=== PATIENT | female | born 1940 | race American Indian/Alaskan Native ===

== ENCOUNTER 2019-02-17 09:14 | Outpatient (CLI) | payer MEDICARE, OTHER ==
--- NOTE | 2019-02-17 13:28 | Ultrasound Report ---
RENAL ULTRASOUND HISTORY: R35.0) FREQUENCY OF MICTURITION COMPARISON: 10/24/2014 TECHNIQUE: Multiple real-time ultrasonographic grayscale images were obtained of the kidneys and urin horace bladder. FINDINGS: Right kidney: A medial upper pole cyst measures 2.7 x 3.1 x 2.4 cm and a more lateral upper pole cyst measures 1.2 x 0.9 x 0.7 cm. Renal margins are indistinct and there is increased echogenicity of the kidney with cortical thinning. Kidney measures 10 cm. Transverse diameters were not obtained. No hy dronephrosis. Left kidney: Increased echogenicity of the kidney and irregular cortex. A solid central mass versus b enign renal column measures 1.8 x 1.4 cm. Kidney measures 10.2 cm.Transverse diameters were not obtai thuan. No hydronephrosis. Urinary bladder: No significant abnormality. IMPRESSION: 1. Bilateral medical renal disease with no hydronephrosis. 2. A possible 1.87 m solid mass in the midportion of the left kidney. Recommend noncontrast CT or MRI without and with contrast for further evaluation. 3. Benign right renal cysts. Signer Name: Charli Knox MD Signed: 02/17/2019 1:24 PM Workstation Name: [id number]
--- NOTE | 2019-02-17 13:32 | Ultrasound Report ---
ULTRASOUND BLADDER INDICATION / CLINICAL INFORMATION: R35.0) Frequency of micturition. COMPARISON: None available. FINDINGS: URINARY BLADDER: No significant abnormality. PRE-VOID VOLUME: 189.1 ml. POST-VOID VOLUME: 121.3 ml. ADDITIONAL FINDINGS: No bladder calculus or mass. IMPRESSION: Elevated post void residual urine volume. POST-VOID RESIDUAL (PVR) GUIDELINES < 50 ml = Normal PVR < 100 ml = Normal PVR in patients > 65 > 100 ml = Consider elevated PVR > 200-300 ml = Large PVR Signer Name: Charli Knox MD Signed: 02/17/2019 1:28 PM Workstation Name: [id number]
== END 2019-02-17 09:15 | disposition home or self-care (01) ==
LOC: US 09:14
PROVIDERS: ATTEND Internal Medicine Nephrology
DX: N28.1 Cyst of kidney, acquired (principal); N28.9 Disorder of kidney and ureter, unspecified
CPT/HCPCS: 76770; 76857

== ENCOUNTER 2021-01-28 15:04 | Emergency (ER) | payer MEDICARE, OTHER ==
[2021-01-28 17:36] VITALS: BP 183/76
--- NOTE | 2021-01-28 18:07 | Emergency Department Report ---
- General Chief complaint: Skin Rash Stated complaint: RASH ON BUTT/VAGINA Time Seen by Provider: 01/28/21 17:50 Source: patient Mode of arrival: Ambulatory Limitations: No Limitations - History of Present Illness Initial comments: Patient is a 80-year-old female brought in by her daughter with complaints of a rash to the buttocks that began a week ago. Patient states that she use hydrocortisone ointment [id number] and it made the symptoms worse. Patient has a history of diabetes. She states that it has been itching and burning. Patient and patient's daughter denies any fever, nausea, vomiting, diarrhea, chills. No allergies to medications. - Related Data Home Medications Medication Instructions Recorded Confirmed Last Taken Aspirin [Aspirin BABY CHEW TAB] 81 mg PO QDAY 10/21/14 10/21/14 Unknown Clopidogrel Bisulfate [Plavix] 75 mg PO DAILY 10/21/14 10/21/14 Unknown Metformin HCl [metFORMIN ER] 500 mg PO BID 10/21/14 10/21/14 Unknown Pravastatin Sodium [Pravastatin] 10 mg PO DAILY 10/21/14 10/21/14 Unknown hydroCHLOROthiazide 25 mg PO DAILY 10/21/14 10/21/14 Unknown [Hydrochlorothiazide] Previous Rx's Medication Instructions Recorded Last Taken Type Fluconazole [Diflucan TAB] 150 mg PO ONCE 1 Days #3 tablet 01/28/21 Unknown Rx Ketoconazole 2% [Nizoral] 1 applicatio TP QDAY #2 tube 01/28/21 Unknown Rx Allergies Allergy/AdvReac Type Severity Reaction Status Date / Time No Known Allergies Allergy Verified 10/21/14 23:57 Abscess Boil HPI - HPI Chief Complaint: Skin Rash Stated Complaint: RASH ON BUTT/VAGINA Time Seen by Provider: 01/28/21 17:50 Home Medications: Home Medications Medication Instructions Recorded Confirmed Last Taken Aspirin [Aspirin BABY CHEW TAB] 81 mg PO QDAY 10/21/14 10/21/14 Unknown Clopidogrel Bisulfate [Plavix] 75 mg PO DAILY 10/21/14 10/21/14 Unknown Metformin HCl [metFORMIN ER] 500 mg PO BID 10/21/14 10/21/14 Unknown Pravastatin Sodium [Pravastatin] 10 mg PO DAILY 10/21/14 10/21/14 Unknown hydroCHLOROthiazide 25 mg PO DAILY 10/21/14 10/21/14 Unknown [Hydrochlorothiazide] Previous Rx's Medication Instructions Recorded Last Taken Type Fluconazole [Diflucan TAB] 150 mg PO ONCE 1 Days #3 tablet 01/28/21 Unknown Rx Ketoconazole 2% [Nizoral] 1 applicatio TP QDAY #2 tube 01/28/21 Unknown Rx Allergies/Adverse Reactions: Allergies Allergy/AdvReac Type Severity Reaction Status Date / Time No Known Allergies Allergy Verified 10/21/14 23:57 ED Review of Systems ROS: Stated complaint: RASH ON BUTT/VAGINA Other details as noted in HPI Comment: All other systems reviewed and negative ED Past Medical Hx - Past Medical History Previous Medical History?: Yes Hx Hypertension: Yes Hx CVA: Yes (2004) Hx Diabetes: Yes Additional medical history: kidney function issues - Surgical History Past Surgical History?: Yes Additional Surgical History: - Social History Smoking Status: Never Smoker - Medications Home Medications: Home Medications Medication Instructions Recorded Confirmed Last Taken Type Aspirin [Aspirin BABY CHEW TAB] 81 mg PO QDAY 10/21/14 10/21/14 Unknown History Clopidogrel Bisulfate [Plavix] 75 mg PO DAILY 10/21/14 10/21/14 Unknown History Metformin HCl [metFORMIN ER] 500 mg PO BID 10/21/14 10/21/14 Unknown History Pravastatin Sodium [Pravastatin] 10 mg PO DAILY 10/21/14 10/21/14 Unknown History hydroCHLOROthiazide 25 mg PO DAILY 10/21/14 10/21/14 Unknown History [Hydrochlorothiazide] Fluconazole [Diflucan TAB] 150 mg PO ONCE 1 Days #3 tablet 01/28/21 Unknown Rx Ketoconazole 2% [Nizoral] 1 applicatio TP QDAY #2 tube 01/28/21 Unknown Rx ED Physical Exam - General Limitations: No Limitations General appearance: alert, in no apparent distress - Head Head exam: Present: atraumatic, normocephalic - Eye Eye exam: Present: normal appearance - ENT ENT exam: Present: mucous membranes moist - Respiratory Respiratory exam: Absent: respiratory distress, accessory muscle use - Neurological Exam Neurological exam: Present: alert, oriented X3 - Psychiatric Psychiatric exam: Present: normal affect, normal mood - Skin Skin exam: Present: warm, dry, other (skin is thickened, scaling, and erythematous present to the inner buttocks bilaterally, no obvious perineum invovlement, no ulceration at this time, no obvious edema, induration or fluctuance, paste up artist: YOVANI correa) ED Course Vital Signs 01/28/21 17:34 Temperature 98.1 F Pulse Rate 76 Respiratory 16 Rate Blood Pressure 183/76 [Right] O2 Sat by Pulse 97 Oximetry ED Medical Decision Making - Medical Decision Making Patient is a 80-year-old female brought in by her daughter with complaints of a rash to the buttocks that began a week ago. Patient states that she use hydrocortisone ointment [id number] and it made the symptoms worse. Patient has a history of diabetes. She states that it has been itching and burning. Patient and patient's daughter denies any fever, nausea, vomiting, diarrhea, chills. No allergies to medications. Vitals are stable, daughter states that patient's blood pressure has been elevated over the last couple weeks and her primary care doctor is working on lowering her blood pressure. On exam:skin is thickened, scaling, and erythematous present to the inner buttocks bilaterally, no obvious perineum invovlement, no ulceration at this time, no obvious edema, induration or fluctuance, paste up artist: YOVANI correa. Examination appears most consistent with skin yeast infection. No signs of cellulitis or abscess at this time. No signs of ulceration. given prescription for medication. Advised patient and patient's daughter Please use medication as prescribed. Please follow-up with your primary care doctor in the next 2 to 3 days to have area reexamined. Return to emergency room immediately for any new or worsening symptoms including but not limited to if you begin to see breakdown of the skin such as an ulcer or she began to seeing signs of infection such as significant swelling, redness, drainage, foul odor, fever, chills, vomiting, etc. Critical care attestation.: If time is entered above; I have spent that time in minutes in the direct care of this critically ill patient, excluding procedure time. ED Disposition Clinical Impression: Fungal skin infection Disposition: DC-01 TO HOME OR SELFCARE Is pt being admited?: No Does the pt Need Aspirin: No Condition: Stable Instructions: Skin Yeast Infection Additional Instructions: Please use medication as prescribed. Please follow-up with your primary care doctor in the next 2 to 3 days to have area reexamined. Return to emergency room immediately for any new or worsening symptoms including but not limited to if you begin to see breakdown of the skin such as an ulcer or she began to seeing signs of infection such as significant swelling, redness, drainage, foul odor, fever, chills, vomiting, etc. Prescriptions: Fluconazole [Diflucan TAB] 150 mg PO ONCE 1 Days #3 tablet Ketoconazole 2% [Nizoral] 1 applicatio TP QDAY #2 tube Referrals: PRIMARY CARE, [Primary Care Provider] - 2-3 Days Time of Disposition: 18:07 Print Language: [place]
== END 2021-01-28 18:10 | disposition home or self-care (01) ==
LOC: ED 15:04
DX: B36.9 Superficial mycosis, unspecified (principal); E11.8 Type 2 diabetes mellitus with unspecified complications; Z86.73 Personal history of transient ischemic attack (TIA), and cerebral infarction without residual deficits; I10 Essential (primary) hypertension
CPT/HCPCS: 99281

== ENCOUNTER 2021-07-04 14:28 | Inpatient (IN) | payer MEDICARE, OTHER ==
--- NOTE | 2021-07-04 15:49 | XRay Report ---
CHEST 2 VIEWS INDICATION: chest pain. COMPARISON: none FINDINGS: Support devices: None. Heart: Within normal limits. Lungs/pleura: No acute air space or interstitial disease. No pneumothorax. Additional findings: None. IMPRESSION: No acute findings. Signer Name: Gildardo Lopez Jr, MD Signed: 07/04/2021 3:45 PM Workstation Name: [id number]
[2021-07-04 16:38] LABS: Basophils % (Auto) 0.3 % (0.0-1.8); Eosinophils # (Auto) 0.3 K/mm3 (0.0-0.4); Eosinophils % (Auto) 3.4 % (0.0-4.3); Hematocrit 37.6 % (30.3-42.9); Hemoglobin 12.2 gm/dl (10.1-14.3); Lymphocytes # (Auto) 3.1 K/mm3 (1.2-5.4); Lymphocytes % (Auto) 39.7 % (13.4-35.0); Mean Corpuscular HGB Conc 33 % (30-34); Mean Corpuscular Volume 105 fl (79-97); Monocytes # (Auto) 0.7 K/mm3 (0.0-0.8); Monocytes % (Auto) 8.8 % (0.0-7.3); Platelet Count 239 K/mm3 (140-440); Red Blood Count 3.58 M/mm3 (3.65-5.03); Red Cell Distribution Width 13.3 % (13.2-15.2)
[2021-07-04] MEDS ORDERED: ASPIRIN 325 MG TAB PO ONE (17:02)
[2021-07-04] MEDS ORDERED: NITROGLYCERIN 2% OINT 1 GM TP ONE (17:02)
[2021-07-04] MEDS ORDERED: MORPHINE 4 MG/1 ML INJ IV ONE (17:02)
[2021-07-04] MEDS ORDERED: ONDANSETRON 4 MG/2 ML INJ IV ONE (17:02)
[2021-07-04 17:04] LABS: Alanine Aminotransferase 12 units/L (7-56); BUN/Creatinine Ratio 19; Blood Urea Nitrogen 23 mg/dL (7-17); Calcium 9.2 mg/dL (8.4-10.2); Creatine Kinase MB 1.9 ng/mL (0.0-4.0); Hemolysis Index 12
--- NOTE | 2021-07-04 17:20 | Emergency Department Report ---
HPI - General Chief Complaint: Chest Pain Time Seen by Provider: 07/04/21 15:35 - HPI HPI: MSE 6 Patient is a 80-year-old female present with a chief complaint of chest pain. The patient states earlier today she developed substernal left-sided chest pain feeling as though something was laying on her chest. Patient states the chest pain suddenly worsened feeling as though Swarner dropped a weight on her chest. Patient denies shortness of breath, nausea/vomiting with the pain but admits to diaphoresis. Patient currently gives her chest heaviness a score of 5/10. Patient states the pain has been intermittent. Patient states she had a normal stress test last year but has never had a cardiac catheterization. ED Past Medical Hx - Past Medical History Hx Hypertension: Yes Hx CVA: Yes (2004) Hx Diabetes: Yes Additional medical history: kidney function issues - Surgical History Additional Surgical History: - Family History Family history: no significant - Social History Smoking Status: Former Smoker (None x40 years) Substance Use Type: None - Medications Home Medications: Home Medications Medication Instructions Recorded Confirmed Last Taken Type Aspirin [Aspirin BABY CHEW TAB] 81 mg PO QDAY 10/21/14 10/21/14 Unknown History Clopidogrel Bisulfate [Plavix] 75 mg PO DAILY 10/21/14 10/21/14 Unknown History Metformin HCl [metFORMIN ER] 500 mg PO BID 10/21/14 10/21/14 Unknown History Pravastatin Sodium [Pravastatin] 10 mg PO DAILY 10/21/14 10/21/14 Unknown History hydroCHLOROthiazide 25 mg PO DAILY 10/21/14 10/21/14 Unknown History [Hydrochlorothiazide] Fluconazole [Diflucan TAB] 150 mg PO ONCE 1 Days #3 tablet 01/28/21 Unknown Rx Ketoconazole 2% [Nizoral] 1 applicatio TP QDAY #2 tube 01/28/21 Unknown Rx ED Review of Systems ROS: Stated complaint: CHEST PAIN Other details as noted in HPI Constitutional: diaphoresis Eyes: denies: eye pain ENT: denies: throat pain Respiratory: denies: shortness of breath Cardiovascular: chest pain Endocrine: no symptoms reported Gastrointestinal: denies: nausea, vomiting Genitourinary: denies: dysuria Musculoskeletal: denies: back pain Neurological: denies: headache Physical Exam - Physical Exam Vital Signs: Vital Signs 07/04/21 15:11 Temperature 97.7 F Pulse Rate 58 L Respiratory 16 Rate Blood Pressure 160/80 [Right] O2 Sat by Pulse 99 Oximetry Physical Exam: GENERAL: The patient is well-developed well-nourished female sitting in chair not appearing to be in acute. [] HEENT: Normocephalic. Atraumatic. Extraocular motions are intact. Patient has moist mucous membranes. NECK: Supple. Trachea midline CHEST/LUNGS: Clear to auscultation. There is no respiratory distress noted. HEART/CARDIOVASCULAR: Regular. There is no tachycardia. There is no gallop rub or murmur. ABDOMEN: Abdomen is soft, nontender. Patient has normal bowel sounds. There is no abdominal distention. SKIN: There is no rash. There is no edema. There is no diaphoresis. NEURO: The patient is awake, alert, and oriented. The patient is cooperative. The patient has no focal neurologic deficits. The patient has normal speech. GCS 15 MUSCULOSKELETAL: There is no evidence of acute injury. ED Course Vital Signs 07/04/21 15:11 Temperature 97.7 F Pulse Rate 58 L Respiratory 16 Rate Blood Pressure 160/80 [Right] O2 Sat by Pulse 99 Oximetry ED Medical Decision Making - Lab Data Result diagrams: 07/04/21 16:07 07/04/21 16:07 Laboratory Tests 07/04/21 07/04/21 07/04/21 16:07 16:07 16:07 WBC 7.9 RBC 3.58 L Hgb 12.2 Hct 37.6 MCV 105 H MCH 34 H MCHC 33 RDW 13.3 Plt Count 239 Lymph % (Auto) 39.7 H [place] % (Auto) 8.8 H Eos % (Auto) 3.4 Baso % (Auto) 0.3 Lymph # (Auto) 3.1 [place] # (Auto) 0.7 Eos # (Auto) 0.3 Baso # (Auto) 0.0 Seg Neutrophils % 47.8 Seg Neutrophils # 3.8 Sodium 141 Potassium 4.6 Chloride 105.3 Carbon Dioxide 20 L Anion Gap 20 BUN 23 H Creatinine 1.2 Estimated GFR 52 BUN/Creatinine Ratio 19 Glucose 90 Calcium 9.2 Total Bilirubin 0.20 AST 18 ALT 12 Alkaline Phosphatase 99 Total Creatine Kinase 73 CK-MB (CK-2) 1.9 CK-MB (CK-2) Rel Index 2.6 Troponin T < 0.010 Total Protein 8.3 H Albumin 4.0 Albumin/Globulin Ratio 0.9 - EKG Data -: EKG Interpreted by Me EKG shows normal: sinus rhythm Rate: normal - EKG Data When compared to previous EKG there are: changes noted Interpretation: nonspecific ST-T wave abdelrahman (New T wave inversions in leads V2, V3 when compared to previous EKG dated 10/22/2014) - Radiology Data Radiology results: report reviewed (Chest x-ray), image reviewed (Chest x-ray) interpreted by me: Chest x-ray-no definite focal infiltrates, no pneumothorax [facility] [address] [place] [address] XRay Report Signed Patient: DORETHA HUDSON MR#: [id number] : 1940 Acct:[id number] Age/Sex: 80 / F ADM Date: 07/04/21 Loc: ED Attending Dr: Ordering Physician: KELLEN VIRK Date of Service: 07/04/21 Procedure(s): XR chest routine 2V Accession Number(s): [id number] cc: KELLEN VIRK Fluoro Time In Minutes: CHEST 2 VIEWS INDICATION: chest pain. COMPARISON: none FINDINGS: Support devices: None. Heart: Within normal limits. Lungs/pleura: No acute air space or interstitial disease. No pneumothorax. Additional findings: None. IMPRESSION: No acute findings. Signer Name: Gildardo Lopez Jr, MD Signed: 07/04/2021 3:45 PM Workstation Name: [id number] Transcribed By: TTR Dictated By: GILDARDO LOPEZ JR, MD Electronically Authenticated By: GILDARDO LOPEZ JR, MD Signed Date/Time: 07/04/211544 DD/ 44 TD/TT: Print Cancel - Differential Diagnosis ACS, pericarditis, GERD Critical care attestation.: If time is entered above; I have spent that time in minutes in the direct care of this critically ill patient, excluding procedure time. ED Disposition Clinical Impression: Chest pain Disposition: ADMITTED INPATIENT Is pt being admited?: Yes Does the pt Need Aspirin: Yes Condition: Fair Instructions: Nonspecific Chest Pain, Adult Referrals: MEENA MATHIS MD [Primary Care Provider] - 3-5 Days Time of Disposition: 17:23 (Hospitalist called (Dr. Valentino)) Heart Score - HEART Score History: Moderately suspicious EKG: Non-specific Age: > 65 Risk factors: 1-2 risk factors Troponin: < normal limit HEART Score: 5 - EKG Read Time Time EKG Completed: 15:02 EKG Read Time: 15:06
--- NOTE | 2021-07-04 21:10 | Event Note ---
Date: 07/04/21
[2021-07-04] MEDS ORDERED: METOCLOPRAMIDE 10 MG/2 ML INJ IV PRN (21:25)
[2021-07-04] MEDS ORDERED: ACETAMINOPHEN 325 MG TAB PO PRN (21:25)
[2021-07-04] MEDS ORDERED: ONDANSETRON 4 MG/2 ML INJ IV PRN (21:25)
[2021-07-04] MEDS ORDERED: oxyCODONE /ACETAMINOPHEN 5-325MG TAB PO PRN (21:25)
[2021-07-04] MEDS ORDERED: SODIUM CHLORIDE 0.9% 1000 ML 1,000 ML IV SCH (21:30)
--- NOTE | 2021-07-04 23:16 | History and Physical Report ---
History of Present Illness Date of examination: 07/04/21 Date of admission: 07/04/21 17:26 Chief complaint: Chest pain since a.m. History of present illness: 80-year-old female with history of type 2 diabetes, hyperlipidemia, hypertension and coronary artery disease comes in for chest pain since a.m. Chest pain is substernal. Feels as if something heavy on her. Chest pain is intermittent. No shortness of breath. Chest pain is about 5 on a scale of 1-10. No nausea or vomiting. No shortness of breath. Patient had a stress test in 2014 at this facility which was reviewed and normal. No fever or cough. No exposure to COVID. Vaccination status was not asked during history taking - Past Medical History --Hypertension: Yes --CVA: Yes (2004) --Diabetes: Yes --kidney function issues - Surgical History --Additional Surgical History: - Family History --Family history: no significant - Social History --Smoking Status: Former Smoker (None x40 years) --Substance Use Type: None - Medications Home Medications: Home Medications Medication Instructions Recorded Confirmed Last Taken Type Aspirin [Aspirin BABY CHEW TAB] 81 mg PO QDAY 10/21/14 10/21/14 Unknown History Clopidogrel Bisulfate [Plavix] 75 mg PO DAILY 10/21/14 10/21/14 Unknown History Metformin HCl [metFORMIN ER] 500 mg PO BID 10/21/14 10/21/14 Unknown History Pravastatin Sodium [Pravastatin] 10 mg PO DAILY 10/21/14 10/21/14 Unknown History hydroCHLOROthiazide 25 mg PO DAILY 10/21/14 10/21/14 Unknown History [Hydrochlorothiazide] Fluconazole [Diflucan TAB] 150 mg PO ONCE 1 Days #3 tablet 01/28/21 Unknown Rx Ketoconazole 2% [Nizoral] 1 applicatio TP QDAY #2 tube 01/28/21 Unknown Rx Review of Systems ROS: Stated complaint: CHEST PAIN Other details as noted in HPI Constitutional: diaphoresis Eyes: denies: eye pain ENT: denies: throat pain Respiratory: denies: shortness of breath Cardiovascular: chest pain Endocrine: no symptoms reported Gastrointestinal: denies: nausea, vomiting Genitourinary: denies: dysuria Musculoskeletal: denies: back pain Neurological: denies: headache Medications and Allergies Allergies Allergy/AdvReac Type Severity Reaction Status Date / Time No Known Allergies Allergy Verified 10/21/14 23:57 Home Medications Medication Instructions Recorded Confirmed Last Taken Type Aspirin [Aspirin BABY CHEW TAB] 81 mg PO QDAY 10/21/14 10/21/14 Unknown History Clopidogrel Bisulfate [Plavix] 75 mg PO DAILY 10/21/14 10/21/14 Unknown History Metformin HCl [metFORMIN ER] 500 mg PO BID 10/21/14 10/21/14 Unknown History Pravastatin Sodium [Pravastatin] 10 mg PO DAILY 10/21/14 10/21/14 Unknown History hydroCHLOROthiazide 25 mg PO DAILY 10/21/14 10/21/14 Unknown History [Hydrochlorothiazide] Fluconazole [Diflucan TAB] 150 mg PO ONCE 1 Days #3 tablet 01/28/21 Unknown Rx Ketoconazole 2% [Nizoral] 1 applicatio TP QDAY #2 tube 01/28/21 Unknown Rx Active Meds: Active Medications Acetaminophen (Acetaminophen 325 Mg Tab) 650 mg PO Q4H PRN PRN Reason: Pain MILD(1-3)/Fever >100.5/GAYLE Famotidine (Famotidine 20 Mg/2 Ml Inj) 20 mg IV BID DESTINI Heparin Sodium (Porcine) (Heparin 5,000 Unit/1 Ml Vial) 5,000 unit SUB-Q Q12HR DESTINI Sodium Chloride (Nacl 0.9% 1000 Ml) 1,000 mls @ 75 mls/hr IV DIRECT DESTINI Ibuprofen (Ibuprofen 400 Mg Tab) 400 mg PO Q8H DESTINI Metoclopramide HCl (Metoclopramide 10 Mg/2 Ml Inj) 10 mg IV Q6H PRN PRN Reason: Nausea And Vomiting Ondansetron HCl (Ondansetron 4 Mg/2 Ml Inj) 4 mg IV Q8H PRN PRN Reason: Nausea And Vomiting Oxycodone/Acetaminophen (Oxycodone /Acetaminophen 5-325mg Tab) 1 tab PO Q6H PRN PRN Reason: Pain, Moderate (4-6) Sodium Chloride (Sodium Chloride 0.9% 10 Ml Flush Syringe) 10 ml IV BID DESTINI Sodium Chloride (Sodium Chloride 0.9% 10 Ml Flush Syringe) 10 ml IV PRN PRN PRN Reason: LINE FLUSH Exam - Constitutional Vitals: Temp Pulse Resp BP Pulse Ox 97.7 F 77 16 179/95 99 07/04/21 15:11 07/04/21 18:43 07/04/21 15:11 07/04/21 18:43 07/04/21 15:11 General appearance: Present: no acute distress, well-nourished - EENT Eyes: Present: PERRL ENT: hearing intact, clear oral mucosa - Neck Neck: Present: supple, normal ROM - Respiratory Respiratory effort: normal Respiratory: bilateral: CTA - Cardiovascular Heart rate: 78 Rhythm: regular Heart Sounds: Present: S1 & S2. Absent: rub, click - Extremities Extremities: pulses symmetrical, No edema Peripheral Pulses: within normal limits - Abdominal General gastrointestinal: Present: soft, non-tender, non-distended, normal bowel sounds Female genitourinary: Present: normal - Integumentary Integumentary: Present: clear, warm, dry - Musculoskeletal Musculoskeletal: gait normal, strength equal bilaterally - Psychiatric Psychiatric: appropriate mood/affect, intact judgment & insight - Neurologic Neurologic: CNII-XII intact, moves all extremities HEART Score - HEART Score History: Moderately suspicious EKG: Non-specific Age: > 65 Risk factors: 1-2 risk factors Troponin: Troponin T < 0.010 ng/mL (0.00-0.029) 07/04/21 16:07 Troponin: < normal limit HEART Score: 5 - Critical Actions Critical Actions: 4-6 pts:12-16.6% risk of adverse cardiac event. Should be admitted Results - Labs CBC & Chem 7: 07/05/21 04:19 07/05/21 04:19 Labs: Laboratory Last Values WBC 7.9 K/mm3 (4.5-11.0) 07/04/21 16:07 RBC 3.58 M/mm3 (3.65-5.03) L 07/04/21 16:07 Hgb 12.2 gm/dl (10.1-14.3) 07/04/21 16:07 Hct 37.6 % (30.3-42.9) 07/04/21 16:07 MCV 105 fl (79-97) H 07/04/21 16:07 MCH 34 pg (28-32) H 07/04/21 16:07 MCHC 33 % (30-34) 07/04/21 16:07 RDW 13.3 % (13.2-15.2) 07/04/21 16:07 Plt Count 239 K/mm3 (140-440) 07/04/21 16:07 Lymph % (Auto) 39.7 % (13.4-35.0) H 07/04/21 16:07 [place] % (Auto) 8.8 % (0.0-7.3) H 07/04/21 16:07 Eos % (Auto) 3.4 % (0.0-4.3) 07/04/21 16:07 Baso % (Auto) 0.3 % (0.0-1.8) 07/04/21 16:07 Lymph # (Auto) 3.1 K/mm3 (1.2-5.4) 07/04/21 16:07 [place] # (Auto) 0.7 K/mm3 (0.0-0.8) 07/04/21 16:07 Eos # (Auto) 0.3 K/mm3 (0.0-0.4) 07/04/21 16:07 Baso # (Auto) 0.0 K/mm3 (0.0-0.1) 07/04/21 16:07 Seg Neutrophils % 47.8 % (40.0-70.0) 07/04/21 16:07 Seg Neutrophils # 3.8 K/mm3 (1.8-7.7) 07/04/21 16:07 Sodium 141 mmol/L (137-145) 07/04/21 16:07 Potassium 4.6 mmol/L (3.6-5.0) 07/04/21 16:07 Chloride 105.3 mmol/L (98-107) 07/04/21 16:07 Carbon Dioxide 20 mmol/L (22-30) L 07/04/21 16:07 Anion Gap 20 mmol/L 07/04/21 16:07 BUN 23 mg/dL (7-17) H 07/04/21 16:07 Creatinine 1.2 mg/dL (0.6-1.2) 07/04/21 16:07 Estimated GFR 52 ml/min 07/04/21 16:07 BUN/Creatinine Ratio 19 % 07/04/21 16:07 Glucose 90 mg/dL (65-100) 07/04/21 16:07 Calcium 9.2 mg/dL (8.4-10.2) 07/04/21 16:07 Total Bilirubin 0.20 mg/dL (0.1-1.2) 07/04/21 16:07 AST 18 units/L (5-40) 07/04/21 16:07 ALT 12 units/L (7-56) 07/04/21 16:07 Alkaline Phosphatase 99 units/L (35-129) 07/04/21 16:07 Total Creatine Kinase 73 units/L (30-135) 07/04/21 16:07 CK-MB (CK-2) 1.9 ng/mL (0.0-4.0) 07/04/21 16:07 CK-MB (CK-2) Rel Index 2.6 (0-4) 07/04/21 16:07 Troponin T < 0.010 ng/mL (0.00-0.029) 07/04/21 16:07 Total Protein 8.3 g/dL (6.3-8.2) H 07/04/21 16:07 Albumin 4.0 g/dL (3.9-5) 07/04/21 16:07 Albumin/Globulin Ratio 0.9 % 07/04/21 16:07 Short CBC 07/04/21 07/05/21 Range/Units 16:07 04:19 WBC 7.9 5.9 (4.5-11.0) K/mm3 Hgb 12.2 11.0 (10.1-14.3) gm/dl Hct 37.6 33.3 (30.3-42.9) % Plt Count 239 205 (140-440) K/mm3 BMP 07/04/21 07/05/21 16:07 04:19 Sodium 141 143 Potassium 4.6 4.6 Chloride 105.3 108.4 H Carbon Dioxide 20 L 19 L BUN 23 H 33 H Creatinine 1.2 1.3 H Glucose 90 109 H Calcium 9.2 8.2 L Cardiac Enzymes 07/04/21 07/04/21 07/04/21 Range/Units 16:07 16:07 22:46 Total Creatine Kinase 73 62 (30-135) units/L CK-MB (CK-2) 1.9 1.7 (0.0-4.0) ng/mL Troponin T < 0.010 < 0.010 (0.00-0.029) ng/mL 07/05/21 Range/Units 04:19 Total Creatine Kinase 55 (30-135) units/L CK-MB (CK-2) 1.7 (0.0-4.0) ng/mL Troponin T < 0.010 (0.00-0.029) ng/mL Liver Function 07/04/21 07/05/21 Range/Units 16:07 04:19 Total Bilirubin 0.20 0.20 (0.1-1.2) mg/dL AST 18 13 (5-40) units/L ALT 12 8 (7-56) units/L Alkaline Phosphatase 99 91 (35-129) units/L Albumin 4.0 3.6 L (3.9-5) g/dL Assessment and Plan Advance Directives: Yes (Full code) VTE prophylaxis?: Chemical Plan of care discussed with patient/family: Yes - Patient Problems (1) Acute coronary syndrome Current Visit: Yes Status: Acute Plan to address problem: Serial troponins and Lexiscan in the morning (2) T2DM (type 2 diabetes mellitus) Current Visit: Yes Status: Chronic Qualifiers: 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 transplanted heart: [place] heart Plan to address problem: Patient on Plavix Continue same (5) Hyperlipidemia Current Visit: Yes Status: Chronic Qualifiers: Hyperlipidemia type: mixed hyperlipidemia Qualified Code(s): E78.2 - Mixed hyperlipidemia Plan to address problem: Continue statins (6) DVT prophylaxis Current Visit: Yes Status: Acute Plan to address problem: On anticoagulation GI prophylaxis (7) Advance care planning Current Visit: Yes Status: Acute Plan to address problem: Disease education conducted, care plan discussed, diagnosis discussed, prognosis discussed. Patient is full code. Patient acknowledges understanding and agreement with care plan. +30 minutes.
[2021-07-04 23:35] LABS: Creatine Kinase MB 1.7 ng/mL (0.0-4.0)
[2021-07-04] MEDS: IBUPROFEN 400 MG TAB PO SCH (23:41)
[2021-07-04] MEDS: FAMOTIDINE 20 MG/2 ML INJ IV SCH (23:41)
[2021-07-04] MEDS: HEPARIN 5,000 UNIT/1 ML VIAL SUB-Q SCH (23:41)
[2021-07-05] MEDS: metFORMIN XR 500MG TAB PO SCH ×3 (02:15→16:33)
[2021-07-05 05:10] LABS: Basophils % (Auto) 0.5 % (0.0-1.8); Eosinophils # (Auto) 0.2 K/mm3 (0.0-0.4); Eosinophils % (Auto) 3.6 % (0.0-4.3); Hematocrit 33.3 % (30.3-42.9); Lymphocytes # (Auto) 1.7 K/mm3 (1.2-5.4); Lymphocytes % (Auto) 28.9 % (13.4-35.0); Mean Corpuscular HGB Conc 33 % (30-34); Mean Corpuscular Volume 104 fl (79-97); Monocytes # (Auto) 0.7 K/mm3 (0.0-0.8); Monocytes % (Auto) 11.1 % (0.0-7.3); Platelet Count 205 K/mm3 (140-440); Red Blood Count 3.21 M/mm3 (3.65-5.03)
[2021-07-05 05:23] LABS: Creatine Kinase MB 1.7 ng/mL (0.0-4.0)
[2021-07-05 05:26] LABS: Albumin 3.6 g/dL (3.9-5); Calcium 8.2 mg/dL (8.4-10.2)
[2021-07-05] MEDS: IBUPROFEN 400 MG TAB PO SCH ×3 (06:01→22:01)
[2021-07-05] MEDS ORDERED: REGADENOSON 0.4 MG/5 ML INJ IV ONE (06:54)
--- NOTE | 2021-07-05 08:09 | Progress Note ---
Assessment and Plan Assessment and plan: -- Acute coronary syndrome Current Visit: Yes Status: Acute Serial troponins and Lexiscan in the morning -- T2DM (type 2 diabetes mellitus) Current Visit: Yes Status: Chronic : Coverage for now Patient is on metformin Check hemoglobin A1c -- Hypertension Current Visit: Yes Status: Chronic Patient on hydrochlorothiazide but not on potassium Potassium added --Coronary artery disease Current Visit: Yes Status: Chronic Patient on Plavix Continue same --Hyperlipidemia Current Visit: Yes Status: Chronic Continue statins --DVT prophylaxis Current Visit: Yes Status: Acute On anticoagulation GI prophylaxis --Advance care planning Current Visit: Yes Status: Acute Disease education conducted, care plan discussed, diagnosis discussed, prognosis discussed. Patient is full code. Patient acknowledges understanding and agreement with care plan. +30 minutes. Follow stress test, if negative and stable patient may be discharged home Plan of care reviewed with the patient and her nurse We will closely monitor the patient and adjust the management as needed History Interval history: I have seen and examined the patient at the bedside; Patient's chart and medications reviewed Admitted with chest pain, 3 sets of cardiac enzymes negative Schedule for stress test Patient complains of mild intermittent chest pain Hospitalist Physical - Constitutional Vitals: Temp Pulse Resp BP Pulse Ox 97.7 F 69 18 154/88 100 07/04/21 15:11 07/05/21 06:31 07/05/21 06:31 07/05/21 06:31 07/05/21 06:31 General appearance: Present: no acute distress, well-nourished - EENT Eyes: Present: PERRL, EOM intact - Neck Neck: Present: supple, normal ROM - Respiratory Respiratory effort: normal Respiratory: bilateral: diminished, negative: rales, rhonchi, wheezing - Cardiovascular Rhythm: regular Heart Sounds: Present: S1 & S2 - Extremities Extremities: no ischemia, No edema - Abdominal General gastrointestinal: soft, non-tender, non-distended, normal bowel sounds - Integumentary Integumentary: Present: clear, warm - Psychiatric Psychiatric: appropriate mood/affect, cooperative - Neurologic Neurologic: CNII-XII intact, moves all extremities HEART Score - HEART Score EKG: Non-specific Age: > 65 Risk factors: 1-2 risk factors Troponin: Troponin T < 0.010 ng/mL (0.00-0.029) 07/05/21 04:19 Troponin: < normal limit - Critical Actions Critical Actions: 4-6 pts:12-16.6% risk of adverse cardiac event. Should be admitted Results - Labs CBC & Chem 7: 07/05/21 04:19 07/05/21 04:19 Labs: Laboratory Last Values WBC 5.9 K/mm3 (4.5-11.0) 07/05/21 04:19 RBC 3.21 M/mm3 (3.65-5.03) L 07/05/21 04:19 Hgb 11.0 gm/dl (10.1-14.3) 07/05/21 04:19 Hct 33.3 % (30.3-42.9) 07/05/21 04:19 MCV 104 fl (79-97) H 07/05/21 04:19 MCH 34 pg (28-32) H 07/05/21 04:19 MCHC 33 % (30-34) 07/05/21 04:19 RDW 13.0 % (13.2-15.2) L 07/05/21 04:19 Plt Count 205 K/mm3 (140-440) 07/05/21 04:19 Lymph % (Auto) 28.9 % (13.4-35.0) 07/05/21 04:19 [place] % (Auto) 11.1 % (0.0-7.3) H 07/05/21 04:19 Eos % (Auto) 3.6 % (0.0-4.3) 07/05/21 04:19 Baso % (Auto) 0.5 % (0.0-1.8) 07/05/21 04:19 Lymph # (Auto) 1.7 K/mm3 (1.2-5.4) 07/05/21 04:19 [place] # (Auto) 0.7 K/mm3 (0.0-0.8) 07/05/21 04:19 Eos # (Auto) 0.2 K/mm3 (0.0-0.4) 07/05/21 04:19 Baso # (Auto) 0.0 K/mm3 (0.0-0.1) 07/05/21 04:19 Seg Neutrophils % 55.9 % (40.0-70.0) 07/05/21 04:19 Seg Neutrophils # 3.3 K/mm3 (1.8-7.7) 07/05/21 04:19 Sodium 143 mmol/L (137-145) 07/05/21 04:19 Potassium 4.6 mmol/L (3.6-5.0) 07/05/21 04:19 Chloride 108.4 mmol/L (98-107) H 07/05/21 04:19 Carbon Dioxide 19 mmol/L (22-30) L 07/05/21 04:19 Anion Gap 20 mmol/L 07/05/21 04:19 BUN 33 mg/dL (7-17) H 07/05/21 04:19 Creatinine 1.3 mg/dL (0.6-1.2) H 07/05/21 04:19 Estimated GFR 48 ml/min 07/05/21 04:19 BUN/Creatinine Ratio 25 % 07/05/21 04:19 Glucose 109 mg/dL (65-100) H 07/05/21 04:19 Calcium 8.2 mg/dL (8.4-10.2) L 07/05/21 04:19 Total Bilirubin 0.20 mg/dL (0.1-1.2) 07/05/21 04:19 AST 13 units/L (5-40) 07/05/21 04:19 ALT 8 units/L (7-56) 07/05/21 04:19 Alkaline Phosphatase 91 units/L (35-129) 07/05/21 04:19 Total Creatine Kinase 55 units/L (30-135) 07/05/21 04:19 CK-MB (CK-2) 1.7 ng/mL (0.0-4.0) 07/05/21 04:19 CK-MB (CK-2) Rel Index 3.0 (0-4) 07/05/21 04:19 Troponin T < 0.010 ng/mL (0.00-0.029) 07/05/21 04:19 Total Protein 7.1 g/dL (6.3-8.2) 07/05/21 04:19 Albumin 3.6 g/dL (3.9-5) L 07/05/21 04:19 Albumin/Globulin Ratio 1.0 % 07/05/21 04:19 Active Medications - Current Medications Current Medications: Generic Name Dose Route Start Last Admin Trade Name Freq PRN Reason Stop Dose Admin Acetaminophen 650 mg 07/04/21 21:25 Acetaminophen 325 Mg Tab PO Q4H PRN Pain MILD(1-3)/Fever >100.5/GALYE Aspirin 81 mg 07/05/21 10:00 Aspirin 81 Mg Tab Chew PO QDAY [facility] Clopidogrel Bisulfate 75 mg 07/05/21 10:00 Clopidogrel 75 Mg Tab PO DAILY [facility] Famotidine 20 mg 07/04/21 22:00 07/04/21 23:41 Famotidine 20 Mg/2 Ml Inj IV 20 mg BID [facility] Administration Heparin Sodium (Porcine) 5,000 unit 07/04/21 22:00 07/04/21 23:41 Heparin 5,000 Unit/1 Ml Vial SUB-Q 5,000 unit Q12HR [facility] Administration Hydrochlorothiazide 25 mg 07/05/21 10:00 Hydrochlorothiazide 25 Mg Tab PO DAILY [facility] Sodium Chloride 1,000 mls @ 75 mls/hr 07/04/21 21:30 Nacl 0.9% 1000 Ml IV DIRECT [facility] Ibuprofen 400 mg 07/04/21 22:00 07/05/21 06:01 Ibuprofen 400 Mg Tab PO Not Given Q8H [facility] Insulin Human Lispro 0 unit 07/05/21 07:30 Insulin Lispro 100 Unit/Ml SUB-Q ACHS [facility] Protocol Metformin HCl 500 mg 07/04/21 23:30 07/05/21 02:15 Metformin Xr 500mg Tab PO 500 mg BIDDIAB [facility] Administration Metoclopramide HCl 10 mg 07/04/21 21:25 Metoclopramide 10 Mg/2 Ml Inj IV Q6H PRN Nausea And Vomiting Ondansetron HCl 4 mg 07/04/21 21:25 Ondansetron 4 Mg/2 Ml Inj IV Q8H PRN Nausea And Vomiting Oxycodone/Acetaminophen 1 tab 07/04/21 21:25 Oxycodone /Acetaminophen 5-325mg Tab PO Q6H PRN Pain, Moderate (4-6) Pravastatin Sodium 10 mg 07/05/21 10:00 Pravastatin 20 Mg Tab PO DAILY [facility] Sodium Chloride 10 ml 07/04/21 22:00 07/04/21 23:41 Sodium Chloride 0.9% 10 Ml Flush Syringe IV 10 ml BID DESTINI Administration Sodium Chloride 10 ml 07/04/21 21:25 Sodium Chloride 0.9% 10 Ml Flush Syringe IV PRN PRN LINE FLUSH
[2021-07-05] MEDS: INSULIN LISPRO 100 UNIT/ML SUB-Q SCH ×4 (08:48→22:01)
[2021-07-05] MEDS: HEPARIN 5,000 UNIT/1 ML VIAL SUB-Q SCH ×2 (09:31→22:01)
[2021-07-05] MEDS: hydroCHLOROthiazide 25 MG TAB PO SCH (09:31)
[2021-07-05] MEDS: ASPIRIN 81 MG TAB CHEW PO SCH (09:31)
[2021-07-05] MEDS: FAMOTIDINE 20 MG/2 ML INJ IV SCH ×2 (09:32→22:01)
[2021-07-05] MEDS: CLOPIDOGREL 75 MG TAB PO SCH (09:32)
[2021-07-05] MEDS: PRAVASTATIN 20 MG TAB PO SCH (09:32)
--- NOTE | 2021-07-05 10:55 | Electrocardiograph Report ---
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
--- NOTE | 2021-07-05 10:58 | Electrocardiograph Report ---
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 Incomplete RBBB and LAFB Probable left ventricular hypertrophy Compared to ECG 07/04/2021 15:02:45 Left anterior fascicular block now present Electronically Signed On 07-05-2021 10:58:22 EST by Kashif Rivera
[2021-07-06] MEDS: IBUPROFEN 400 MG TAB PO SCH (05:34)
[2021-07-06] MEDS ORDERED: REGADENOSON 0.4 MG/5 ML INJ IV ONE (07:58)
[2021-07-06] MEDS: INSULIN LISPRO 100 UNIT/ML SUB-Q SCH ×4 (08:50→22:46)
[2021-07-06] MEDS: metFORMIN XR 500MG TAB PO SCH ×2 (08:50→17:19)
[2021-07-06] MEDS: CLOPIDOGREL 75 MG TAB PO SCH (10:00)
[2021-07-06] MEDS: ASPIRIN 81 MG TAB CHEW PO SCH (10:00)
[2021-07-06] MEDS: PRAVASTATIN 20 MG TAB PO SCH (10:00)
[2021-07-06] MEDS: hydroCHLOROthiazide 25 MG TAB PO SCH (10:00)
[2021-07-06] MEDS: FAMOTIDINE 20 MG/2 ML INJ IV SCH ×2 (10:01→22:46)
[2021-07-06] MEDS: HEPARIN 5,000 UNIT/1 ML VIAL SUB-Q SCH ×2 (10:01→22:46)
--- NOTE | 2021-07-06 20:04 | Progress Note ---
Assessment and Plan Assessment and plan: Patient ate food by mistake and was not n.p.o. for stress test today, stress test is rescheduled for tomorrow 07/06/2021 Patient underwent stress test this morning, report pending Patient feels slightly better We will closely monitor the patient, follow stress test report And possible discharge tomorrow if stable -- Acute coronary syndrome Current Visit: Yes Status: Acute Serial troponins and Lexiscan in the morning -- T2DM (type 2 diabetes mellitus) Current Visit: Yes Status: Chronic : Coverage for now Patient is on metformin Check hemoglobin A1c -- Hypertension Current Visit: Yes Status: Chronic Patient on hydrochlorothiazide but not on potassium Potassium added --Coronary artery disease Current Visit: Yes Status: Chronic Patient on Plavix Continue same --Hyperlipidemia Current Visit: Yes Status: Chronic Continue statins --DVT prophylaxis Current Visit: Yes Status: Acute On anticoagulation GI prophylaxis --Advance care planning Current Visit: Yes Status: Acute Disease education conducted, care plan discussed, diagnosis discussed, prognosis discussed. Patient is full code. Patient acknowledges understanding and agreement with care plan. +30 minutes. Follow stress test, if negative and stable patient may be discharged home Plan of care reviewed with the patient and her nurse We will closely monitor the patient and adjust the management as needed History Interval history: I have seen and examined the patient at the bedside Patient's chart and medications reviewed And had stress test done today report pending Denies chest pain or shortness of breath Vital signs noted Hospitalist Physical - Constitutional Vitals: Temp Pulse Resp BP Pulse Ox 97.5 F L 70 18 142/82 100 07/06/21 15:11 07/06/21 17:31 07/06/21 17:31 07/06/21 15:11 07/06/21 17:31 General appearance: Present: no acute distress, well-nourished - EENT Eyes: Present: PERRL, EOM intact - Neck Neck: Present: supple, normal ROM - Respiratory Respiratory effort: normal Respiratory: bilateral: diminished, negative: rales, rhonchi, wheezing - Cardiovascular Rhythm: regular Heart Sounds: Present: S1 & S2 - Extremities Extremities: no ischemia, No edema - Abdominal General gastrointestinal: soft, non-tender, non-distended, normal bowel sounds - Integumentary Integumentary: Present: clear, warm - Psychiatric Psychiatric: appropriate mood/affect, cooperative - Neurologic Neurologic: moves all extremities HEART Score - HEART Score EKG: Non-specific Age: > 65 Risk factors: 1-2 risk factors Troponin: Troponin T < 0.010 ng/mL (0.00-0.029) 07/05/21 04:19 Troponin: < normal limit - Critical Actions Critical Actions: 4-6 pts:12-16.6% risk of adverse cardiac event. Should be admitted Results - Labs CBC & Chem 7: 07/05/21 04:19 07/05/21 04:19 Labs: Laboratory Last Values WBC 5.9 K/mm3 (4.5-11.0) 07/05/21 04:19 RBC 3.21 M/mm3 (3.65-5.03) L 07/05/21 04:19 Hgb 11.0 gm/dl (10.1-14.3) 07/05/21 04:19 Hct 33.3 % (30.3-42.9) 07/05/21 04:19 MCV 104 fl (79-97) H 07/05/21 04:19 MCH 34 pg (28-32) H 07/05/21 04:19 MCHC 33 % (30-34) 07/05/21 04:19 RDW 13.0 % (13.2-15.2) L 07/05/21 04:19 Plt Count 205 K/mm3 (140-440) 07/05/21 04:19 Lymph % (Auto) 28.9 % (13.4-35.0) 07/05/21 04:19 [place] % (Auto) 11.1 % (0.0-7.3) H 07/05/21 04:19 Eos % (Auto) 3.6 % (0.0-4.3) 07/05/21 04:19 Baso % (Auto) 0.5 % (0.0-1.8) 07/05/21 04:19 Lymph # (Auto) 1.7 K/mm3 (1.2-5.4) 07/05/21 04:19 [place] # (Auto) 0.7 K/mm3 (0.0-0.8) 07/05/21 04:19 Eos # (Auto) 0.2 K/mm3 (0.0-0.4) 07/05/21 04:19 Baso # (Auto) 0.0 K/mm3 (0.0-0.1) 07/05/21 04:19 Seg Neutrophils % 55.9 % (40.0-70.0) 07/05/21 04:19 Seg Neutrophils # 3.3 K/mm3 (1.8-7.7) 07/05/21 04:19 Sodium 143 mmol/L (137-145) 07/05/21 04:19 Potassium 4.6 mmol/L (3.6-5.0) 07/05/21 04:19 Chloride 108.4 mmol/L (98-107) H 07/05/21 04:19 Carbon Dioxide 19 mmol/L (22-30) L 07/05/21 04:19 Anion Gap 20 mmol/L 07/05/21 04:19 BUN 33 mg/dL (7-17) H 07/05/21 04:19 Creatinine 1.3 mg/dL (0.6-1.2) H 07/05/21 04:19 Estimated GFR 48 ml/min 07/05/21 04:19 BUN/Creatinine Ratio 25 % 07/05/21 04:19 Glucose 109 mg/dL (65-100) H 07/05/21 04:19 POC Glucose 110 mg/dL (70-105) H 07/06/21 17:01 Calcium 8.2 mg/dL (8.4-10.2) L 07/05/21 04:19 Total Bilirubin 0.20 mg/dL (0.1-1.2) 07/05/21 04:19 AST 13 units/L (5-40) 07/05/21 04:19 ALT 8 units/L (7-56) 07/05/21 04:19 Alkaline Phosphatase 91 units/L (35-129) 07/05/21 04:19 Total Creatine Kinase 55 units/L (30-135) 07/05/21 04:19 CK-MB (CK-2) 1.7 ng/mL (0.0-4.0) 07/05/21 04:19 CK-MB (CK-2) Rel Index 3.0 (0-4) 07/05/21 04:19 Troponin T < 0.010 ng/mL (0.00-0.029) 07/05/21 04:19 Total Protein 7.1 g/dL (6.3-8.2) 07/05/21 04:19 Albumin 3.6 g/dL (3.9-5) L 07/05/21 04:19 Albumin/Globulin Ratio 1.0 % 07/05/21 04:19 Young/IV: Voiding Method Toilet Active Medications - Current Medications Current Medications: Generic Name Dose Route Start Last Admin Trade Name Freq PRN Reason Stop Dose Admin Acetaminophen 650 mg 07/04/21 21:25 Acetaminophen 325 Mg Tab PO Q4H PRN Pain MILD(1-3)/Fever >100.5/GAYLE Aspirin 81 mg 07/05/21 10:00 07/06/21 10:00 Aspirin 81 Mg Tab Chew PO 81 mg QDAY [facility]IN[facility] Administration Clopidogrel Bisulfate 75 mg 07/05/21 10:00 07/06/21 10:00 Clopidogrel 75 Mg Tab PO 75 mg DAILY [facility] Administration Famotidine 20 mg 07/04/21 22:00 07/06/21 10:01 Famotidine 20 Mg/2 Ml Inj IV 20 mg BID [facility] Administration Heparin Sodium (Porcine) 5,000 unit 07/04/21 22:00 07/06/21 10:01 Heparin 5,000 Unit/1 Ml Vial SUB-Q 5,000 unit Q12HR [facility] Administration Hydrochlorothiazide 25 mg 07/05/21 10:00 07/06/21 10:00 Hydrochlorothiazide 25 Mg Tab PO 25 mg DAILY [facility] Administration Sodium Chloride 1,000 mls @ 75 mls/hr 07/04/21 21:30 Nacl 0.9% 1000 Ml IV DIRECT [facility] Insulin Human Lispro 0 unit 07/05/21 07:30 07/06/21 17:19 Insulin Lispro 100 Unit/Ml SUB-Q Not Given ACHS [facility] Protocol Metformin HCl 500 mg 07/04/21 23:30 07/06/21 17:19 Metformin Xr 500mg Tab PO Not Given BIDDIAB [facility] Metoclopramide HCl 10 mg 07/04/21 21:25 Metoclopramide 10 Mg/2 Ml Inj IV Q6H PRN Nausea And Vomiting Ondansetron HCl 4 mg 07/04/21 21:25 Ondansetron 4 Mg/2 Ml Inj IV Q8H PRN Nausea And Vomiting Oxycodone/Acetaminophen 1 tab 07/04/21 21:25 Oxycodone /Acetaminophen 5-325mg Tab PO Q6H PRN Pain, Moderate (4-6) Pravastatin Sodium 10 mg 07/05/21 10:00 07/06/21 10:00 Pravastatin 20 Mg Tab PO 10 mg DAILY DESTINI Administration Sodium Chloride 10 ml 07/04/21 22:00 07/06/21 10:02 Sodium Chloride 0.9% 10 Ml Flush Syringe IV 10 ml BID DESTINI Administration Sodium Chloride 10 ml 07/04/21 21:25 Sodium Chloride 0.9% 10 Ml Flush Syringe IV PRN PRN LINE FLUSH
[2021-07-07 06:29] LABS: Chol/HDL Ratio 2.46 %
[2021-07-07 08:51] VITALS: BP 136/69
[2021-07-07] MEDS: ASPIRIN 81 MG TAB CHEW PO SCH (09:29)
[2021-07-07] MEDS: PRAVASTATIN 20 MG TAB PO SCH (09:29)
[2021-07-07] MEDS: hydroCHLOROthiazide 25 MG TAB PO SCH (09:30)
[2021-07-07] MEDS: CLOPIDOGREL 75 MG TAB PO SCH (09:30)
[2021-07-07] MEDS: metFORMIN XR 500MG TAB PO SCH (09:32)
[2021-07-07] MEDS: FAMOTIDINE 20 MG/2 ML INJ IV SCH (09:32)
[2021-07-07] MEDS: INSULIN LISPRO 100 UNIT/ML SUB-Q SCH ×2 (09:32→12:44)
[2021-07-07] MEDS: HEPARIN 5,000 UNIT/1 ML VIAL SUB-Q SCH (09:32)
--- NOTE | 2021-07-07 11:34 | Progress Note ---
Assessment and Plan Assessment and plan: Patient ate food by mistake and was not n.p.o. for stress test today, stress test is rescheduled for tomorrow 07/06/2021 Patient underwent stress test this morning, report pending Patient feels slightly better We will closely monitor the patient, follow stress test report And possible discharge tomorrow if stable -- Acute coronary syndrome Current Visit: Yes Status: Acute Serial troponins and Lexiscan in the morning -- T2DM (type 2 diabetes mellitus) Current Visit: Yes Status: Chronic : Coverage for now Patient is on metformin Check hemoglobin A1c -- Hypertension Current Visit: Yes Status: Chronic Patient on hydrochlorothiazide but not on potassium Potassium added --Coronary artery disease Current Visit: Yes Status: Chronic Patient on Plavix Continue same --Hyperlipidemia Current Visit: Yes Status: Chronic Continue statins --DVT prophylaxis Current Visit: Yes Status: Acute On anticoagulation GI prophylaxis --Advance care planning Current Visit: Yes Status: Acute Disease education conducted, care plan discussed, diagnosis discussed, prognosis discussed. Patient is full code. Patient acknowledges understanding and agreement with care plan. +30 minutes. Follow stress test, if negative and stable patient may be discharged home Plan of care reviewed with the patient and her nurse We will closely monitor the patient and adjust the management as needed Hospitalist Physical - Constitutional Vitals: Temp Pulse Resp BP Pulse Ox 97.8 F 71 20 136/69 94 07/07/21 08:03 07/07/21 08:03 07/07/21 08:03 07/07/21 08:03 07/07/21 08:03 General appearance: Present: no acute distress, well-nourished HEART Score - HEART Score EKG: Non-specific Age: > 65 Risk factors: 1-2 risk factors Troponin: Troponin T < 0.010 ng/mL (0.00-0.029) 07/05/21 04:19 Troponin: < normal limit - Critical Actions Critical Actions: 4-6 pts:12-16.6% risk of adverse cardiac event. Should be admitted Results - Labs CBC & Chem 7: 07/05/21 04:19 07/05/21 04:19 Labs: Laboratory Last Values WBC 5.9 K/mm3 (4.5-11.0) 07/05/21 04:19 RBC 3.21 M/mm3 (3.65-5.03) L 07/05/21 04:19 Hgb 11.0 gm/dl (10.1-14.3) 07/05/21 04:19 Hct 33.3 % (30.3-42.9) 07/05/21 04:19 MCV 104 fl (79-97) H 07/05/21 04:19 MCH 34 pg (28-32) H 07/05/21 04:19 MCHC 33 % (30-34) 07/05/21 04:19 RDW 13.0 % (13.2-15.2) L 07/05/21 04:19 Plt Count 205 K/mm3 (140-440) 07/05/21 04:19 Lymph % (Auto) 28.9 % (13.4-35.0) 07/05/21 04:19 [place] % (Auto) 11.1 % (0.0-7.3) H 07/05/21 04:19 Eos % (Auto) 3.6 % (0.0-4.3) 07/05/21 04:19 Baso % (Auto) 0.5 % (0.0-1.8) 07/05/21 04:19 Lymph # (Auto) 1.7 K/mm3 (1.2-5.4) 07/05/21 04:19 [place] # (Auto) 0.7 K/mm3 (0.0-0.8) 07/05/21 04:19 Eos # (Auto) 0.2 K/mm3 (0.0-0.4) 07/05/21 04:19 Baso # (Auto) 0.0 K/mm3 (0.0-0.1) 07/05/21 04:19 Seg Neutrophils % 55.9 % (40.0-70.0) 07/05/21 04:19 Seg Neutrophils # 3.3 K/mm3 (1.8-7.7) 07/05/21 04:19 Sodium 143 mmol/L (137-145) 07/05/21 04:19 Potassium 4.6 mmol/L (3.6-5.0) 07/05/21 04:19 Chloride 108.4 mmol/L (98-107) H 07/05/21 04:19 Carbon Dioxide 19 mmol/L (22-30) L 07/05/21 04:19 Anion Gap 20 mmol/L 07/05/21 04:19 BUN 33 mg/dL (7-17) H 07/05/21 04:19 Creatinine 1.3 mg/dL (0.6-1.2) H 07/05/21 04:19 Estimated GFR 48 ml/min 07/05/21 04:19 BUN/Creatinine Ratio 25 % 07/05/21 04:19 Glucose 109 mg/dL (65-100) H 07/05/21 04:19 POC Glucose 109 mg/dL (70-105) H 07/07/21 08:33 Calcium 8.2 mg/dL (8.4-10.2) L 07/05/21 04:19 Total Bilirubin 0.20 mg/dL (0.1-1.2) 07/05/21 04:19 AST 13 units/L (5-40) 07/05/21 04:19 ALT 8 units/L (7-56) 07/05/21 04:19 Alkaline Phosphatase 91 units/L (35-129) 07/05/21 04:19 Total Creatine Kinase 55 units/L (30-135) 07/05/21 04:19 CK-MB (CK-2) 1.7 ng/mL (0.0-4.0) 07/05/21 04:19 CK-MB (CK-2) Rel Index 3.0 (0-4) 07/05/21 04:19 Troponin T < 0.010 ng/mL (0.00-0.029) 07/05/21 04:19 Total Protein 7.1 g/dL (6.3-8.2) 07/05/21 04:19 Albumin 3.6 g/dL (3.9-5) L 07/05/21 04:19 Albumin/Globulin Ratio 1.0 % 07/05/21 04:19 Triglycerides 67 mg/dL (2-149) 07/07/21 04:23 Cholesterol 133 mg/dL (50-199) 07/07/21 04:23 LDL Cholesterol Direct 76 mg/dL (50-130) 07/07/21 04:23 HDL Cholesterol 54 mg/dL (40-59) 07/07/21 04:23 Cholesterol/HDL Ratio 2.46 % 07/07/21 04:23 Young/IV: Voiding Method Toilet Active Medications - Current Medications Current Medications: Generic Name Dose Route Start Last Admin Trade Name Freq PRN Reason Stop Dose Admin Acetaminophen 650 mg 07/04/21 21:25 Acetaminophen 325 Mg Tab PO Q4H PRN Pain MILD(1-3)/Fever >100.5/GAYLE Aspirin 81 mg 07/05/21 10:00 07/07/21 09:29 Aspirin 81 Mg Tab Chew PO 81 mg QDAY DESTINI Administration Clopidogrel Bisulfate 75 mg 07/05/21 10:00 07/07/21 09:30 Clopidogrel 75 Mg Tab PO 75 mg DAILY DESTINI Administration Famotidine 20 mg 07/07/21 22:00 Famotidine 20 Mg Tab PO BID [facility] Heparin Sodium (Porcine) 5,000 unit 07/04/21 22:00 07/07/21 09:32 Heparin 5,000 Unit/1 Ml Vial SUB-Q 5,000 unit Q12HR [facility] Administration Hydrochlorothiazide 25 mg 07/05/21 10:00 07/07/21 09:30 Hydrochlorothiazide 25 Mg Tab PO 25 mg DAILY [facility] Administration Sodium Chloride 1,000 mls @ 75 mls/hr 07/04/21 21:30 Nacl 0.9% 1000 Ml IV DIRECT [facility] Insulin Human Lispro 0 unit 07/05/21 07:30 07/07/21 09:32 Insulin Lispro 100 Unit/Ml SUB-Q Not Given ACHS [facility] Protocol Metformin HCl 500 mg 07/04/21 23:30 07/07/21 09:32 Metformin Xr 500mg Tab PO Not Given BIDDIAB [facility] Metoclopramide HCl 10 mg 07/04/21 21:25 Metoclopramide 10 Mg/2 Ml Inj IV Q6H PRN Nausea And Vomiting Ondansetron HCl 4 mg 07/04/21 21:25 Ondansetron 4 Mg/2 Ml Inj IV Q8H PRN Nausea And Vomiting Oxycodone/Acetaminophen 1 tab 07/04/21 21:25 Oxycodone /Acetaminophen 5-325mg Tab PO Q6H PRN Pain, Moderate (4-6) Pravastatin Sodium 10 mg 07/05/21 10:00 07/07/21 09:29 Pravastatin 20 Mg Tab PO 10 mg DAILY DESTINI Administration Sodium Chloride 10 ml 07/04/21 22:00 07/07/21 09:32 Sodium Chloride 0.9% 10 Ml Flush Syringe IV 10 ml BID DESTINI Administration Sodium Chloride 10 ml 07/04/21 21:25 Sodium Chloride 0.9% 10 Ml Flush Syringe IV PRN PRN LINE FLUSH
--- NOTE | 2021-07-07 12:20 | Discharge Summary ---
Providers - Providers Date of Admission: 07/05/21 15:37 Date of discharge: 07/07/21 Attending physician: SYEDA LESLIE Primary care physician: MEENA MATHIS Hospitalization Reason for admission: Chest pain Condition: Fair Pertinent studies: Chest x-ray; no acute abnormality noted Procedures: Stress test; anterior breast attenuation, normal perfusion scan Normal systolic function EF 73% Hospital course: -- Acute coronary syndrome Current Visit: Yes Status: Acute Serial troponins and Lexiscan in the morning -- T2DM (type 2 diabetes mellitus) Current Visit: Yes Status: Chronic : Coverage for now Patient is on metformin Check hemoglobin A1c -- Hypertension Current Visit: Yes Status: Chronic Patient on hydrochlorothiazide but not on potassium Potassium added --Coronary artery disease Current Visit: Yes Status: Chronic Patient on Plavix Continue same --Hyperlipidemia Current Visit: Yes Status: Chronic Continue statins Final Discharge Diagnosis (Prints w/discharge instructions): Acute coronary syndrome. Atypical chest pain. Noncardiac chest pain due to GERD. Type 2 diabetes mellitus. Hypertension. Coronary artery disease. Dyslipidemia Time spent for discharge: 35 minutes Core Measure Documentation - Palliative Care Palliative Care/ Comfort Measures: Not Applicable - Core Measures Any of the following diagnoses?: none Exam - Constitutional Vitals: Temp Pulse Resp BP Pulse Ox 97.8 F 71 20 136/69 94 07/07/21 08:03 07/07/21 08:03 07/07/21 08:03 07/07/21 08:03 07/07/21 08:03 General appearance: Present: no acute distress, well-nourished - EENT Eyes: Present: PERRL, EOM intact - Neck Neck: Present: supple, normal ROM - Cardiovascular Rhythm: regular Heart Sounds: Present: S1 & S2 - Extremities Extremities: no ischemia, No edema - Abdominal General gastrointestinal: Present: soft, non-tender, non-distended, normal bowel sounds - Integumentary Integumentary: Present: clear, warm - Musculoskeletal Musculoskeletal: strength equal bilaterally - Psychiatric Psychiatric: appropriate mood/affect, cooperative - Neurologic Neurologic: CNII-XII intact, moves all extremities Plan Activity: no restrictions Diet: diabetic, other (Cardiac diet) Additional Instructions: Your stress test is negative for any abnormality. Chest pain probably due to gastroesophageal reflux disease. If you have worsening symptoms contact MD or go to emergency room as needed. Follow-up primary care physician in 3 to 5 days. Follow-up with private service officer in 1 to 2 weeks or as needed Follow up with: MEENA MATHIS MD [Primary Care Provider] - 3-5 Days INES HERNANDEZ MD [Staff Physician] - 7 Days Prescriptions: Famotidine [Pepcid] 20 mg PO BID #30 tablet oxyCODONE /ACETAMINOPHEN [Percocet 5/325 mg] 1 tab PO Q8H PRN #6 tablet PRN Reason: Pain, Moderate (4-6)
--- NOTE | 2021-07-07 13:39 | Treadmill Report ---
DATE OF SERVICE: 07/06/2021 MYOCARDIAL PERFUSION SCAN REPORT DATE OF PROCEDURE: 07/06/2021 FINDINGS: Homogeneous uptake of tracer noted in the rest and stress images. There is evidence of slight anterior breast attenuation. Otherwise, no significant areas of ischemia or infarct are noted. Normal wall motion. LVEF 73%. IMPRESSION: 1. Anterior breast attenuation artifact. 2. Otherwise, normal perfusion scan. 3. Normal systolic function. TID: [id number] RECEIPT: [id number] RR/HUS
[2021-07-07] MEDS ORDERED: FAMOTIDINE 20 MG TAB PO SCH (22:00)
== END 2021-07-07 16:39 | disposition home or self-care (01) | DRG 392 ==
LOC: ED 14:28 → 4A 17:26 → OBSVTOIN 07-05 15:37 → 4A 07-06 09:27
PROVIDERS: ADMIT Internal Medicine; ATTEND Internal Medicine
DX: K21.9 Gastro-esophageal reflux disease without esophagitis (principal); E11.9 Type 2 diabetes mellitus without complications; I10 Essential (primary) hypertension; I25.10 Atherosclerotic heart disease of native coronary artery without angina pectoris; E78.2 Mixed hyperlipidemia; Z79.82 Long term (current) use of aspirin; Z87.891 Personal history of nicotine dependence; Z86.73 Personal history of transient ischemic attack (TIA), and cerebral infarction without residual deficits; Z79.84 Long term (current) use of oral hypoglycemic drugs
CPT/HCPCS: 36415; 71046; 78452; 80053; 80061; 82550; 82553; 82962; 84484; 85025; 93005; 93017; G0378; J3490; A9502; J1644; J2270; J2405; J2785